=== PATIENT | female | born 1970 | race Caucasian/White ===

== ENCOUNTER 2021-07-12 20:21 | Inpatient (IN) | payer BC ==
[~2021-07-12] VITALS: Ht 157.5 cm; Wt 51.0 kg
[~2021-07-12 20:21] MED LIST: ALBUTEROL SULFAT3 M3 IH; COLACE 100100 MG/CAP PO; EPA FISH OIL1000 MG PO; FERATE27 MG PO; PRENATAL1 TA1 PO; REGLAN 5MG T5 MG/TAB PO; SUDAFED30 MG PO; ZITHROMAX Z PA250 MG PO
[2021-07-12 22:05] VITALS: BP 110/45; PULSE 77; TEMP 98.6
--- NOTE | 2021-07-12 22:09 | NUR ---
ADMITTED TO ROOM 343 PER WC.
[2021-07-12 23:52] VITALS: BP 107/46; PULSE 85; TEMP 99
[2021-07-13] VITALS (11 sets, daily range): BP systolic 91–118; BP diastolic 43–53; PULSE 64–83; TEMP 97.8–98.6
--- NOTE | 2021-07-13 03:38 | NUR ---
PT NAUSEATED. DRY HEAVES. SEE MAR FOR ZOFRAN GIVEN. TEMP 100.9
[2021-07-13] MEDS ORDERED: NORCO 325 MG-51 TAB PO ×2 (08:11→12:51)
[2021-07-13] MEDS ORDERED: AMOXICILLIN 8751 TAB PO ×2 (08:12→12:51)
--- NOTE | 2021-07-13 10:07 | NUR ---
PT ASSESSED. NO COMPLAINTS OF PAIN OR DYSPNEA. NO SIGNS OR SYMPTOMS OF DSITRESS .CALL LIGHT WITHIN REACH. POST OP VITALS RUNNING
--- NOTE | 2021-07-13 10:26 | NUR ---
SW met with the patient to discuss discharge plan. The patient lives in [place] with her , Nico (ph#[phone]), and two daughters. She reports independence with ADLs and does not have any DME. The patient's PCP is Dr. Svitlana Carroll and she receives her medications from [facility]. The patient does not have a DPOA-HC and she was not interested in completing one at this time. The patient plans on returning home with her family upon discharge. No additional needs at this time. *Discharge plan: home with family*
[2021-07-14 00:32] VITALS: BP 91/59; PULSE 57; TEMP 97.9
[2021-07-14 04:49] VITALS: BP 101/51; PULSE 62; TEMP 98.2
[2021-07-14 07:31] VITALS: BP 100/56; PULSE 62; TEMP 98
--- NOTE | 2021-07-14 09:51 | NUR ---
PT ASSESSED. NO COMPLAINTS OF PAIN OR DYSPNEA. NO SIGNS OR SYMPTOMS OF DSITRESS. PT ABLE TO TOLERATE FOOD AND WALKING. NO OTHER CONCERNS AT THIS TIME. CALL LIGHT WITHIN REACH
[2021-07-14 11:09] VITALS: BP 96/50; PULSE 76; TEMP 97.6
--- NOTE | 2021-07-14 15:21 | NUR ---
PT DISCHARGE TEACHING COMPLETE. INFORMATION GIVEN ABOUT MEDICATIONS AND FOLLOW UP APPOINTMENTS. ALL QUESTIONS ANSWERED. PT ESCORTED OUT BY [facility]
== END 2021-07-14 15:46 | disposition home or self-care (01) | DRG 340 ==
LOC: SURG 20:21
PROVIDERS: ADMIT Surgery
PROC: 0DTJ4ZZ Resection of Appendix, Percutaneous Endoscopic Approach (ICD-10-PCS; principal; 2021-07-13 07:30)
DX: K35.33 Acute appendicitis with perforation, localized peritonitis, and gangrene, with abscess (principal); K59.09 Other constipation
CPT/HCPCS: OP; G0378; J0690; J1100; J1885; J2270; J2405; J2543; J2704; J3010; J7030; J7120

== ENCOUNTER → 2023-07-25 | Outpatient (CLI) | payer BC ==
[~2023-07-25] MED LIST changes: +AMOXICILLIN 8751 TAB PO; +NORCO 325 MG-51 TAB PO
== END ==
LOC: MC.RAD 10:15
DX: Z12.31 Encounter for screening mammogram for malignant neoplasm of breast (principal)